=== PATIENT | female | born 1995 | race Caucasian/White ===

== ENCOUNTER 2016-08-09 14:19 | Emergency (ER) | payer OTHER ==
[~2016-08-09] VITALS: Ht 167.6 cm; Wt 72.5 kg
[~2016-08-09 14:19] MED LIST: Colace PO; Feosol PO; MOTRIN600 MG PO; Motrin PO; NAPROSYN500 MG PO; Percocet 5/325,Endoc PO; ULTRAM50 MG PO
[2016-08-09 15:08] LABS: ADD MIUA? YES; BILIRUBIN NEGATIVE; BLOOD NEGATIVE; COLOR YELLOW ((YELLOW)); GLUCOSE (STRIP) NEGATIVE; KETONES NEGATIVE; LEUKOCYTES SMALL; NITRITE NEGATIVE; PROTEIN (STRIP) NEGATIVE; SPECIFIC GRAVITY 1.005 (1.000-1.030); UROBILINOGEN 0.2 MG/DL (0.2-1.0)
[2016-08-09 15:22] LABS: BACTERIA RARE /HPF; EPITHELIAL CELLS 4+ /HPF; MUCUS TRACE /LPF; RED BLOOD CELLS 0-5 /HPF (0-5); UCUL ADDED? NO
[2016-08-09 16:30] LABS: HEMATOCRIT 45.4 % (36.0-46.0); MCH 30.4 PG (29.0-34.0); MCHC 33.3 G/DL (30.0-36.0); MCV 91.5 FL (83-99); MEAN PLAT.VOLUME 10.2 uM^3 (9.5-12.4); PLATELET COUNT 276 K/uL (156-360); RBC DIS.WIDTH-CV 12.4 % (11.8-14.6); RBC DIS.WIDTH-SD 41.6 % (39-53); RED BLOOD COUNT 4.96 M/uL (3.80-5.20); WHITE BLOOD COUNT 10.1 K/uL (4.1-10.2)
[2016-08-09 16:39] LABS: CHLORIDE 105 mEq/L (99-109); POTASSIUM 4.3 mEq/L (3.7-5.4); SODIUM 139 mEq/L (136-147)
[2016-08-09 16:41] LABS: GLUCOSE 102 mg/dL (70-99)
[2016-08-09 16:42] LABS: ANION GAP 12 MEQ/L (2-14)
[2016-08-09 16:43] LABS: TOTAL BILIRUBIN 0.6 mg/dL (0.0-1.0)
[2016-08-09 16:44] LABS: ALKALINE PHOSPHATASE 80 IU/L (3-129)
[2016-08-09 16:45] LABS: GFR ESTIMATE (CALCULATED) > 59 mL/min/
[2016-08-09 16:46] LABS: UREA NITROGEN (BUN) 9 mg/dL (9-23)
[2016-08-09 16:54] LABS: QUANTITATIVE HCG < 4.0 MIU/ML
[2016-08-09] MEDS ORDERED: ZOFRAN ODT4 MG PO (18:45)
[2016-08-09 18:59] VITALS: BP 129/81
== END 2016-08-09 19:00 | disposition home or self-care (01) ==
LOC: EME 14:19
DX: R10.31 Right lower quadrant pain (principal); K59.00 Constipation, unspecified; F17.200 Nicotine dependence, unspecified, uncomplicated; R11.2 Nausea with vomiting, unspecified
CPT/HCPCS: 74000; 74177; 80053; 81003; 84702; 85027; 99281; 99284; J1885; J2405; J7030

== ENCOUNTER 2016-08-10 22:53 | Emergency (ER) | payer OTHER ==
[~2016-08-10] VITALS: Ht 167.6 cm; Wt 73.3 kg
[~2016-08-10 22:53] MED LIST changes: +ZOFRAN ODT4 MG PO
[2016-08-11 00:16] LABS: HEMATOCRIT 42.4 % (36.0-46.0); MCH 30.5 PG (29.0-34.0); MCHC 33.3 G/DL (30.0-36.0); MCV 91.8 FL (83-99); PLATELET COUNT 266 K/uL (156-360); RBC DIS.WIDTH-CV 12.3 % (11.8-14.6); RBC DIS.WIDTH-SD 41.1 % (39-53); RED BLOOD COUNT 4.62 M/uL (3.80-5.20); WHITE BLOOD COUNT 13.2 K/uL (4.1-10.2)
[2016-08-11 00:23] LABS: CHLORIDE 103 mEq/L (99-109); SODIUM 140 mEq/L (136-147)
[2016-08-11 00:26] LABS: GLUCOSE 109 mg/dL (70-99)
[2016-08-11 00:27] LABS: ANION GAP 13 MEQ/L (2-14)
[2016-08-11 00:28] LABS: TOTAL BILIRUBIN 0.5 mg/dL (0.0-1.0)
[2016-08-11 00:29] LABS: ALKALINE PHOSPHATASE 74 IU/L (3-129); GFR ESTIMATE (CALCULATED) > 59 mL/min/
[2016-08-11 00:30] LABS: ADD MIUA? YES; BILIRUBIN NEGATIVE; BLOOD NEGATIVE; COLOR YELLOW ((YELLOW)); GLUCOSE (STRIP) NEGATIVE; KETONES 5; LEUKOCYTES MODERATE; NITRITE NEGATIVE; PROTEIN (STRIP) NEGATIVE; SPECIFIC GRAVITY 1.016 (1.000-1.030); UROBILINOGEN 0.2 MG/DL (0.2-1.0)
[2016-08-11 00:30] LABS: UREA NITROGEN (BUN) 12 mg/dL (9-23)
[2016-08-11 00:44] LABS: BACTERIA 1+ /HPF; EPITHELIAL CELLS RARE /HPF; MUCUS TRACE /LPF; WHITE BLOOD CELLS 20-30 /HPF (0-5)
[2016-08-11 01:33] LABS: LIPASE 9 U/L (1.0-51.0)
[2016-08-11 02:46] LABS: QUANTITATIVE HCG < 4.0 MIU/ML
[2016-08-11] MEDS ORDERED: PERCOCET 5/31 TABLET PO (02:59)
[2016-08-11 03:28] VITALS: BP 126/74
== END 2016-08-11 03:29 | disposition home or self-care (01) ==
LOC: EME 22:53
PROVIDERS: Nurse Practitioner Family
DX: R10.84 Generalized abdominal pain (principal); R11.2 Nausea with vomiting, unspecified; K59.00 Constipation, unspecified; N83.201 Unspecified ovarian cyst, right side; F17.200 Nicotine dependence, unspecified, uncomplicated
CPT/HCPCS: 74000; 76856; 80053; 81003; 83690; 84702; 85027; 99281; 99284; J2405; J7030

== ENCOUNTER 2017-05-21 16:47 | Emergency (ER) | payer OTHER ==
[~2017-05-21] VITALS: Ht 167.6 cm; Wt 75.7 kg
[~2017-05-21 16:47] MED LIST changes: +PERCOCET 5/31 TABLET PO
[2017-05-21 17:48] LABS: HEMATOCRIT 38.3 % (36.0-46.0); HEMOGLOBIN 12.6 G/DL (11.9-15.5); MCH 29.2 PG (29.0-34.0); MCHC 32.9 G/DL (30.0-36.0); MCV 88.9 FL (83-99); PLATELET COUNT 249 K/uL (156-360); RBC DIS.WIDTH-CV 13.9 % (11.8-14.6); RBC DIS.WIDTH-SD 45.6 % (39-53); RED BLOOD COUNT 4.31 M/uL (3.80-5.20); WHITE BLOOD COUNT 12.8 K/uL (4.1-10.2)
[2017-05-21 17:56] LABS: CHLORIDE 107 mEq/L (99-109); SODIUM 139 mEq/L (136-147)
[2017-05-21 17:58] LABS: GLUCOSE 93 mg/dL (70-99)
[2017-05-21 18:02] LABS: CREATININE 0.7 mg/dL (0.6-1.3); GFR ESTIMATE (CALCULATED) > 59 mL/min/
[2017-05-21 18:03] LABS: UREA NITROGEN (BUN) 12 mg/dL (9-23)
[2017-05-21 18:11] LABS: QUANTITATIVE HCG < 4.0 MIU/ML
[2017-05-21] MEDS ORDERED: CLEOCIN300 MG PO (20:55)
[2017-05-21] MEDS ORDERED: NAPROSYN500 MG PO (20:55)
[2017-05-21 21:15] VITALS: BP 128/76
== END 2017-05-21 21:16 | disposition home or self-care (01) ==
LOC: EME 16:47
PROVIDERS: Nurse Practitioner Family
DX: K04.7 Periapical abscess without sinus (principal); R59.9 Enlarged lymph nodes, unspecified; J35.1 Hypertrophy of tonsils; F17.200 Nicotine dependence, unspecified, uncomplicated; Z86.018 Personal history of other benign neoplasm; Z88.5 Allergy status to narcotic agent; Z88.6 Allergy status to analgesic agent
CPT/HCPCS: 70491; 80048; 83605; 84702; 85027; 99281; 99285; J1885